=== PATIENT | male | born 1985 | race Hispanic/Latino ===

== ENCOUNTER 2021-04-12 11:49 | Emergency (ER) | payer OTHER ==
[~2021-04-12] VITALS: Ht 172.7 cm; Wt 87.1 kg
== END 2021-04-12 16:20 | disposition home or self-care (01) ==
LOC: ED 11:49
DX: R10.31 Right lower quadrant pain (principal); Z87.891 Personal history of nicotine dependence
CPT/HCPCS: 74176; 80053; 81001; 85025; 99284-25